=== PATIENT | male | born 1970 | race Caucasian/White ===

== ENCOUNTER 2016-12-17 20:58 | Emergency (ER) | payer BC, OTHER ==
[~2016-12-17] VITALS: Ht 185.4 cm; Wt 88.1 kg
[~2016-12-17 20:58] MED LIST: LAMO1TAB77 PO
[2016-12-17 21:01] VITALS: TEMP 36.7; Ht 185.4 cm; Wt 88.1 kg
[2016-12-17] MEDS ORDERED: HYDROmorphone INJ 1 MG/ML SYR IV STA ×2 (21:15→22:07)
[2016-12-17] MEDS ORDERED: ONDANSETRON INJ 2 MG/ML 2 ML VIAL IV STA (21:15)
[2016-12-17] MEDS ORDERED: KETOROLAC TROMETHAMINE 30 MG/ML VIAL IV STA (21:15)
[2016-12-17] MEDS ORDERED: SODIUM CHLORIDE 0.9% 1000ML 1,000 ML IV STA (21:15)
[2016-12-17] MEDS ORDERED: IBUP-103 PO (21:18)
[2016-12-17] MEDS ORDERED: DEXAMETHASONE SOD INJ 10 MG/ML VIAL IV ONE (21:30)
[2016-12-17 21:52] LABS: BASO % 0.6 %; BASO ABS # 0.04 K/uL (0-0.2); COMPLETE YES; EOS % 5.5 %; HEMATOCRIT 43.6 % (42-52); IG% 0.2 %; LYMPH % 35.3 %; LYMPH ABS # 2.18 K/uL (1.2-3.4); MEAN CORPUSCULAR HGB CONC 33.7 g/dl (32-36); MEAN PLATELET VOLUME 9.5 fL (7.4-10.4); MONO % 7.1 %; NEUT % 51.3 %; PLATELET COUNT 218 K/uL (130-400); WHITE BLOOD COUNT 6.18 K/uL (4.8-10.8)
[2016-12-17 22:07] LABS: CALCIUM 8.7 mg/dl (8.5-10.1)
[2016-12-17 22:08] LABS: BLOOD UREA NITROGEN 18 mg/dl (7-18); BUN/CREATININE RATIO 15.1 (10-20); C-REACTIVE PROTEIN < 0.29 mg/dl (0-0.29); CARBON DIOXIDE 29 mmol/L (21-32); CHLORIDE 104 mmol/L (98-107); GLUCOSE 105 mg/dl (70-99); POTASSIUM 3.8 mmol/L (3.5-5.1); SODIUM 142 mmol/L (136-145)
[2016-12-17] MEDS ORDERED: MoRPHine SULFATE 10 MG/ML CARP/VIAL IV STA (22:44)
[2016-12-17] MEDS ORDERED: OXYC1TAB3 PO (23:35)
--- NOTE | 2016-12-17 23:41 | EMERGENCY ROOM VISIT NOTE ---
History First contact with patient: 21:02 Chief Complaint: BACK PAIN Stated Complaint: LOW BACK PAIN History of Present Illness The patient is a 46 year old male who presents to the Emergency Room with complaints of lower back pain radiating down the left lower extremity to the calf. The patient reports that he was riding his bicycle in the backyard when he felt a pop in his lower back, then quickly developed radicular symptoms. The patient now reports severe pain. He denies any [place] foot drop when walking across the yard to the house. He has not urinated since this injury which happened a proximal one hour ago. He currently denies any saddle anesthesias or incontinence. The patient does have a history of left L5-S1 HNP , status post laminotomy performed by Dr. Krishnan in 2010. He has had no problems with his back since that time. The patient was recently in [place] , but denies any other recent injuries or strains to his bike. 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 He currently rates his discomfort an 8 out of 10. Sitting worsens his pain. His best pain relief is laying flat on his back with his left leg crossed over the right knee. The patient reports that he is good friends with Dr. Krishnan, and contacted him this evening. The patient will be following up in his office tomorrow. Review of Systems HEENT: Denies dizziness, visual problems, hearing loss, tinnitus. Denies difficulty swallowing or oral lesions. PULMONARY: Denies cough, shortness of breath, sputum production or hemoptysis. CARDIOVASCULAR: Denies chest pain, palpitations, dyspnea on exertion, orthopnea or peripheral edema. GASTROINTESTINAL: Denies diarrhea, constipation, nausea, vomiting, or abdominal pain. GENITOURINARY: Denies dysuria, frequency, urgency or nocturia. NEUROLOGIC: Denies history of epilepsy, CVA, TIA or chronic headaches. MUSCULOSKELETAL: Denies history of joint tenderness/swelling. SKIN: Denies rashes or lesions. PSYCHIATRIC: Denies history of depression or mental illness. ENDOCRINE: Denies history of diabetes or thyroid disorders. Past Medical/Surgical History Medical Problems: (1) Multiple orthopedic fractures Surgical Problems: (1) History of cervical spinal surgery (2) History of lumbar laminectomy (3) History of sinus surgery Family History No significant family history Social History Smoking Status: Never Smoker Alcohol Use: occasionally Marital Status: Housing Status: lives with family Occupation Status: employed Current/Historical Medications Scheduled Lamotrigine (Lamotrigine Er), 200 MG PO BID Scheduled PRN Ibuprofen Tab (Advil), 400-600 MG PO Q6H PRN for Pain Oxycodone Ir (Roxicodone Ir), 1-2 TAB PO Q4H PRN for Pain Allergies Coded Allergies: No Known Allergies (Verified , 08/29/15) Physical Exam Vital Signs Date Time Temp Pulse Resp B/P (MAP) Pulse Ox O2 Delivery O2 Flow Rate FiO2 12/17/16 23:00 68 18 154/81 99 Room Air 12/17/16 21:01 36.7 63 18 170/95 98 Room Air Physical Exam CONSTITUTIONAL: Healthy and well nourished. Alert and oriented X 3 with positive affect. The patient appears in mild to moderate discomfort. HEENT: Normocephalic, atraumatic. Pupils equal, round and reactive. NECK: Full active range of motion without discomfort. RESPIRATORY: Clear to auscultation bilaterally with no wheezing, crackles, rhonchi or stridor. CARDIOVASCULAR: Regular rate and rhythm with no murmurs, rubs or gallops. GASTROINTESTINAL: Bowel sounds present in all quadrants. Soft and nontender to palpation. MUSCULOSKELETAL: Examination shows mild tenderness to palpation through the left lumbar paraspinous muscle and SI joints. Negative logroll. Positive straight leg raise. Pedal pulses are intact. INTEGUMENTARY: No rash or other significant dermatologic conditions noted. NEUROLOGIC: Left lower extremity is sensory intact with 2+ deep tendon reflexes bilaterally. Medical Decision & Procedures Laboratory Results 12/17/16 21:40 Red Blood Count 4.90, Mean Corpuscular Volume 89.0, Mean Corpuscular Hemoglobin 30.0, Mean Corpuscular Hemoglobin Concent 33.7, Mean Platelet Volume 9.5, Neutrophils (%) (Auto) 51.3, Lymphocytes (%) (Auto) 35.3, Monocytes (%) (Auto) 7.1, Eosinophils (%) (Auto) 5.5, Basophils (%) (Auto) 0.6, Neutrophils # (Auto) 3.17, Lymphocytes # (Auto) 2.18, Monocytes # (Auto) 0.44, Eosinophils # (Auto) 0.34, Basophils # (Auto) 0.04 6/18/17 21:40 Test 12/17/16 21:40 White Blood Count 6.18 K/uL (4.8-10.8) Red Blood Count 4.90 M/uL (4.7-6.1) Hemoglobin 14.7 g/dL (14.0-18.0) Hematocrit 43.6 % (42-52) Mean Corpuscular Volume 89.0 fL (80-100) Mean Corpuscular Hemoglobin 30.0 pg (25-34) Mean Corpuscular Hemoglobin Concent 33.7 g/dl (32-36) Platelet Count 218 K/uL (130-400) Mean Platelet Volume 9.5 fL (7.4-10.4) Neutrophils (%) (Auto) 51.3 % Lymphocytes (%) (Auto) 35.3 % Monocytes (%) (Auto) 7.1 % Eosinophils (%) (Auto) 5.5 % Basophils (%) (Auto) 0.6 % Neutrophils # (Auto) 3.17 K/uL (1.4-6.5) Lymphocytes # (Auto) 2.18 K/uL (1.2-3.4) Monocytes # (Auto) 0.44 K/uL (0.11-0.59) Eosinophils # (Auto) 0.34 K/uL (0-0.5) Basophils # (Auto) 0.04 K/uL (0-0.2) RDW Standard Deviation 40.3 fL (36.4-46.3) RDW Coefficient of Variation 12.5 % (11.5-14.5) Immature Granulocyte % (Auto) 0.2 % Immature Granulocyte # (Auto) 0.01 K/uL (0.00-0.02) Erythrocyte Sedimentation Rate 2 mm/hr (0-14) Anion Gap 9.0 mmol/L (3-11) Est Creatinine Clear Calc Drug Dose 87.8 ml/min Estimated GFR () 84.1 Estimated GFR (Non- 72.6 BUN/Creatinine Ratio 15.1 (10-20) Calcium Level 8.7 mg/dl (8.5-10.1) C-Reactive Protein < 0.29 mg/dl (0-0.29) Medications Administered Medications (Trade) Dose Ordered Sig/Patricia Route Start Time Stop Time Status Last Admin Dose Admin Sodium Chloride 1,000 ml @ 999 mls/hr Q1H1M STAT IV 6/18/17 21:15 12/17/16 22:15 DC 12/17/16 21:34 999 MLS/HR Hydromorphone HCl (Dilaudid Inj) 1 mg NOW STAT IV 12/17/16 21:15 12/17/16 21:17 DC 12/17/16 21:35 1 MG Ketorolac Tromethamine (Toradol Inj) 30 mg NOW STAT IV 12/17/16 21:15 12/17/16 21:17 DC 12/17/16 21:36 30 MG Ondansetron HCl (Zofran Inj) 4 mg NOW STAT IV 12/17/16 21:15 12/17/16 21:17 DC 12/17/16 21:35 4 MG Dexamethasone Sodium Phosphate (Decadron Inj) 10 mg NOW ONCE IV 12/17/16 21:30 12/17/16 21:31 DC 12/17/16 21:35 10 MG Hydromorphone HCl (Dilaudid Inj) 1 mg NOW STAT IV 12/17/16 22:07 12/17/16 22:09 DC 12/17/16 22:14 1 MG Morphine Sulfate (MoRPHine SULFATE INJ) 10 mg NOW STAT IV 12/17/16 22:44 12/17/16 22:45 DC 12/17/16 22:50 10 MG Procedure 1. IV hydration: The patient received a liter normal saline bolus 2. IV medications: Dilaudid 1 mg, Toradol 30 mg, Zofran 4 mg and Decadron 10 mg IVP. The patient was administered a second dose of Dilaudid 1 mg approximately 30 minutes after the first because he had no relief of his pain. With assessment 30 minutes later, the patient reports her cyst and pain without significant relief. He was then administered morphine 10 mg IVP which did provide relief. ED Course Patient history and physical exam were performed. Nurse's notes were reviewed. Vital signs were reviewed and normal. His exam at this time is not concerning for cauda equina syndrome. I explain to the patient and made things can cause this pain, including muscle spasm and disc injury. His symptoms are consistent with a nonemergent neurogenic injury. I did discuss utility of the MRI studies, and suggested that he wait until he sees Dr. Krishnan tomorrow. I did suggest performing parenteral pain management and administration of a corticosteroid. The patient was in agreement. IV access was established. I did elect to draw labs in case the patient has intractable pain and will need observation or admission for this injury. Also with Dr. Krishnan warrants surgical intervention with this injury, labs will also already been performed. Labs were reviewed and were normal. The patient was administered a liter normal saline, and his initially was treated with IV Dilaudid, Toradol, Zofran and Decadron. After 30 minutes, the patient still had no relief of his pain, and was administered a second dose of Dilaudid. Assessment and 30 minutes showed no significant relief of pain. At this point, the patient reports that he had morphine after his last surgery. He was then administered morphine 10 mg IVP with reduction of his pain to a 7 out of 10. The patient was successfully trial ambulated. He was able to sit on the bed and stand "with some relief", and would like to try going home at this point. He reports that he has been texting Dr. Krishnan regarding his progress, and will be seen in his office tomorrow. The patient was provided a home pack and prescription for OxyIR 5 mg, dispensed #24 with no refills. As he will be seen in Dr. Messer's office tomorrow, I elected to not prescribed corticosteroids as they may have a different preference. The patient was instructed to return to the emergency department for intractable pain, bladder incontinence, profound approximately weakness or other concerning symptoms. The patient was happy with plan of care , and discharged with his . Medical Decision Clinical exam and history at this point is not suggestive of cauda equina syndrome. The patient does have a prior history of discotomy for a left L5-S1 HNP. The patient does not just a mechanism of injury for disc herniation at this time. Mechanism of injury also is not suggestive of a fracture, therefore plain radiograph studies were not performed. Impression Primary Impression: Left lumbar radiculitis Departure Information Prescriptions Oxycodone Ir (Roxicodone Ir) 5 Mg Tab 1-2 TAB PO Q4H Y for Pain, #24 TAB For Initial Treatment Prov: Jung Cotter PA 12/17/16 Referrals Aly Rush, D.OIrineo (PCP) Patient Instructions [facility]
[2016-12-17] MEDS ORDERED: OXYCODONE IR HOME PACK PO ONE (23:45)
[2016-12-17 23:56] VITALS: BP 147/76; PULSE 65; O2SAT 100
== END 2016-12-17 23:57 | disposition home or self-care (01) ==
LOC: C.EDB 21:00 → C.EDA 23:57
DX: M54.16 Radiculopathy, lumbar region (principal); Z79.899 Other long term (current) drug therapy

== ENCOUNTER 2018-01-23 12:00 | Inpatient (IN) | payer OTHER ==
[~2018-01-23] VITALS: Ht 185.4 cm; Wt 81.9 kg
[~2018-01-23 12:00] MED LIST changes: +IBUP-103 PO
[2018-01-23] MEDS ORDERED: LAMO1TAB76 PO (12:13)
--- NOTE | 2018-01-23 14:02 | DIAGNOSTIC IMAGING REPORT ---
LUMBAR SPINE W/O CONTRAST CLINICAL HISTORY: 48 years-old Male with LBP, LLE/pubic numbness - eval cauda equina. Acute low back pain with left lower extremity weakness. COMPARISON: MRI lumbar spine 12/22/2016. TECHNIQUE: Multiplanar, multi sequence MRI of the lumbar spine was performed without intravenous contrast. FINDINGS: No acute fracture, subluxation or focal bone marrow edema. Signal within the imaged thoracic spinal cord appears normal. Conus medullaris terminates at T12-L1. The imaged intra-abdominal, intrapelvic and paraspinal structures demonstrate no acute abnormality. T12-L1: No central canal or neural foraminal stenosis. L1-L2: No central canal or neural foraminal stenosis. L2-L3: No central canal or neural foraminal stenosis. L3-L4: Small circumferential annular disc bulge flattens the ventral thecal sac. No central canal or foraminal narrowing. Minimal facet spurring. L4-L5: Mild disc desiccation with circumferential annular disc bulge. Right paracentral/foraminal disc protrusion is also noted. There is flattening of the ventral thecal sac without significant central canal stenosis. There is mild right lateral recess and mild bilateral foraminal narrowing. Mild facet arthropathy. L5-S1: Mild to moderate intervertebral disc space narrowing with spondylytic spurring and circumferential annular disc bulge with suggested annular fissure. There is an ovoid structure posterior to the S1 vertebral body and inferior aspect of the L5-S1 disc space which demonstrates intermediate T1 and decreased T2 signal measuring 0.7 x 1.6 x 1.5 cm in AP, transverse and craniocaudal dimensions, respectively, within the central canal, left paracentral distribution and left lateral recess. This narrows the AP dimension of the thecal sac to 3 mm resulting in severe central canal, severe left lateral recess and moderate left foraminal stenosis. The right foramen is patent. Mild facet arthropathy. IMPRESSION: 1. 1.6 cm disc extrusion or sequestered disc fragment posterior to the S1 vertebral body and inferior L5-S1 endplate causes severe central canal, severe left lateral recess and moderate left foraminal narrowing. 2. Circumferential annular disc bulge with right paracentral/foraminal disc protrusion at L4-L5 causes mild right lateral recess stenosis. There is also mild bilateral foraminal narrowing at this level. 3. Mild multilevel facet arthropathy. The above report was generated using voice recognition software. It may contain grammatical, syntax or spelling errors. Dictated: 01/23/2018 1:12 PM Transcribed: 01/23/2018 2:02 PM DARIN_Anil Electronically signed by: Ronen Vang M.D. 01/23/2018 2:11 PM Dictated Date/Time: 01/23/2018 1:12 PM
[2018-01-23] MEDS ORDERED: SODIUM CHLORIDE 0.9% 1000ML 1,000 ML IV SCH (16:24)
[2018-01-23] MEDS ORDERED: ONDANSETRON INJ 2 MG/ML 2 ML VIAL IV PRN (16:30)
[2018-01-23] MEDS ORDERED: LORAZEPAM 1 MG TAB PO PRN (16:30)
[2018-01-23] MEDS ORDERED: CYCLOBENZAPRINE HCL 10 MG TAB PO PRN (16:30)
[2018-01-23] MEDS ORDERED: LORAZEPAM INJ 1 MG in SYRINGE 0 ML IV PRN (16:30)
[2018-01-23] MEDS ORDERED: OXYCODONE/ACETAMINOPHEN 5-325 TAB PO PRN (16:30)
[2018-01-23] MEDS ORDERED: ACETAMINOPHEN 325 MG TAB PO PRN (16:30)
[2018-01-23] MEDS ORDERED: NALOXONE HCL 0.4 MG/1 ML VIAL/CARP IV PRN (16:30)
--- NOTE | 2018-01-23 16:34 | History and Physical ---
History & Physical Date Jan 23, 2018. Chief Complaint Back pain with urinary retention and left leg weakness History of Present Illness The patient is a 48 year old male with complaints of progressive back pain left lower extremity weakness and urinary retention. He states over the past several days he began experiencing perineal numbness marked difficulty with urination and significant strength deficits with pushoff and walking involving left lower extremity. He denies any specific trauma fall or event. He does have a history of a disc herniation L5-S1 on the left little over a year ago that was managed with epidural steroids. He is status post laminotomy L5-S1 on the right many years ago. This time he states he has had no loss of bowel function. Is unable to sleep or ambulate any distance secondary to pain. Start a course of oral steroids and anti-inflammatories without improvement. MRI obtained in the emergency room this afternoon of the lumbar spine available for review does demonstrate evidence of a massive disc herniation L5-S1 emanating from the left side and producing a large massive free fragment migrating caudally creating significant stenosis and neural impingement posterior to S1 vertebral body. 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 Past Medical/Surgical History Medical Problems: (1) Multiple orthopedic fractures (2) Spinal stenosis of lumbar region with radiculopathy Surgical Problems: (1) History of cervical spinal surgery (2) History of lumbar laminectomy (3) History of sinus surgery Additional History Hepatic Disease: No Endocrine Disorder: No Kidney Disease: No Hypertension: No Heart Disease: No Bleeding Tendencies: No Infectious Diseases: No Allergies Coded Allergies: No Known Allergies (Verified , 08/29/15) Home Medications Scheduled Lamotrigine (Lamotrigine Er), 200 MG PO DAILY Physical Examination Addiitonal Comments: On exam he is in obvious distress. He does demonstrate decreased sensation to left lower extremity compared to the right as well as numbness along the perineal area. He has marked difficulty with heel raise on the left compared to the right. His dorsiflexion and extensor hallucis longus appears to be symmetric and intact. Quadriceps intact. Markedly positive straight leg raise on the left negative on the right. He has no abnormal skin markings well- healed midline lumbar incision. Plan of Treatment Assessment herniated nucleus pulposus L5-S1 with free fragment and significant neural compromise and neural deficit. Plan at this time this would be his third lumbar L5-S1 disc herniation now with progressive neurologic deficit numbness and bladder symptoms. Subsequently recommend urgent decompression and fusion of the lumbar spine. Risks benefits pros cons and alternatives were outlined in detail. Risks include but not limited to from anesthesia blindness stroke paralysis nerve damage blood loss current transfusion infection requiring reoperation benefits hopefully marked improvement of his radiculopathy and with time recurrent return of his strength and improvement of his perineal numbness. Patient understands and agrees. We will make him n.p.o. after midnight tonight have him undergo preoperative evaluation with anesthesia and hope for surgery early a.m.
[2018-01-23 16:45] VITALS: O2SAT 97; Ht 185.4 cm; Wt 81.9 kg
--- NOTE | 2018-01-23 17:04 | EMERGENCY ROOM VISIT NOTE ---
History First contact with patient: 12:11 Stated Complaint: LOSS OF FEELING FROM WAIST DOWN/BACK & LEG PAIN History of Present Illness The patient is a 48 year old male who presents to the Emergency Room with complaints of loss sensation in his pubic region and lateral aspect of the left lower extremity. The patient reports a prior history of disc herniation with surgery performed by Dr. Krishnan in 2010. The patient has also had an epidural steroid injection in the back approximately 1 week ago at [facility]. This only provided short-term relief for approximately 1 week. The patient also reports that he got a second opinion from [facility] as well. Although the patient denies any bladder or bowel incontinence , he reports that it feels like he is going to lose bladder control, and is afraid to sleep because of it. He denies any noticeable weakness or foot drop. He reports a burning sensation radiating down the left lower extremity to the calf. The patient rates his discomfort a 6 out of 10. He denies any recent trauma to the back. Review of Systems HEENT: Denies dizziness, visual problems, hearing loss, tinnitus. Denies difficulty swallowing or oral lesions. PULMONARY: Denies cough, shortness of breath, sputum production or hemoptysis. CARDIOVASCULAR: Denies chest pain, palpitations, dyspnea on exertion, orthopnea or peripheral edema. GASTROINTESTINAL: Denies diarrhea, constipation, nausea, vomiting, or abdominal pain. GENITOURINARY: Denies dysuria, frequency, urgency or nocturia. NEUROLOGIC: Denies history of epilepsy, CVA, TIA or chronic headaches. MUSCULOSKELETAL: Denies history of joint tenderness/swelling. Otherwise see HPI with history of back surgery and left-sided HNP of L5-S1. SKIN: Denies rashes or lesions. PSYCHIATRIC: Denies history of depression or mental illness. ENDOCRINE: Denies history of diabetes or thyroid disorders. Past Medical/Surgical History Medical Problems: (1) Multiple orthopedic fractures (2) Spinal stenosis of lumbar region with radiculopathy Surgical Problems: (1) History of cervical spinal surgery (2) History of lumbar laminectomy (3) History of sinus surgery Family History No significant family history Social History Smoking Status: Never Smoker Alcohol Use: occasionally Marital Status: Housing Status: lives with family Occupation Status: employed Current/Historical Medications Scheduled Lamotrigine (Lamotrigine Er), 200 MG PO DAILY Physical Exam Vital Signs Date Time Temp Pulse Resp B/P (MAP) Pulse Ox O2 Delivery O2 Flow Rate FiO2 01/23/18 15:15 48 15 129/77 97 Room Air 01/23/18 14:49 36.5 59 20 142/82 96 Room Air Physical Exam CONSTITUTIONAL: Healthy and well nourished. Alert and oriented X 3 with positive affect. Patient appears in mild distress. HEENT: Normocephalic, atraumatic. Pupils equal, round and reactive. No scleral icterus or conjunctival injection. NECK: Full active range of motion without discomfort. RESPIRATORY: Clear to auscultation bilaterally with no wheezing, crackles, rhonchi or stridor. CARDIOVASCULAR: Regular rate and rhythm with no murmurs, rubs or gallops. GASTROINTESTINAL: Bowel sounds present in all quadrants. Soft and nontender to palpation. GENITOURINARY: Patient reports a subjective decreased sensation of the perineum and inner thigh region. No priapism. MUSCULOSKELETAL: Examination shows mild tenderness to palpation of the left lower lumbar spine and SI joint. Negative logroll. Negative straight leg raise. Ankle plantar/dorsiflexion strength is 4 out of 5 on the left, 5 out of 5 on the right. Pedal pulses are intact. INTEGUMENTARY: No rash or other significant dermatologic conditions noted. NEUROLOGIC: Deep tendon reflexes are 2+ and symmetric bilaterally. The patient reports subjective decreased sensation to the lateral aspect of the foot , leg and thigh. Medical Decision & Procedures ER Provider Diagnostic Interpretation: MRI of the lumbar spine without IV contrast shows the following: LUMBAR SPINE W/O CONTRAST CLINICAL HISTORY: 48 years-old Male with LBP, LLE/pubic numbness - eval cauda equina. Acute low back pain with left lower extremity weakness. COMPARISON: MRI lumbar spine 12/22/2016. TECHNIQUE: Multiplanar, multi sequence MRI of the lumbar spine was performed without intravenous contrast. FINDINGS: No acute fracture, subluxation or focal bone marrow edema. Signal within the imaged thoracic spinal cord appears normal. Conus medullaris terminates at T12-L1. The imaged intra-abdominal, intrapelvic and paraspinal structures demonstrate no acute abnormality. T12-L1: No central canal or neural foraminal stenosis. L1-L2: No central canal or neural foraminal stenosis. L2-L3: No central canal or neural foraminal stenosis. L3-L4: Small circumferential annular disc bulge flattens the ventral thecal sac. No central canal or foraminal narrowing. Minimal facet spurring. L4-L5: Mild disc desiccation with circumferential annular disc bulge. Right paracentral/foraminal disc protrusion is also noted. There is flattening of the ventral thecal sac without significant central canal stenosis. There is mild right lateral recess and mild bilateral foraminal narrowing. Mild facet arthropathy. L5-S1: Mild to moderate intervertebral disc space narrowing with spondylytic spurring and circumferential annular disc bulge with suggested annular fissure. There is an ovoid structure posterior to the S1 vertebral body and inferior aspect of the L5-S1 disc space which demonstrates intermediate T1 and decreased T2 signal measuring 0.7 x 1.6 x 1.5 cm in AP, transverse and craniocaudal dimensions, respectively, within the central canal, left paracentral distribution and left lateral recess. This narrows the AP dimension of the thecal sac to 3 mm resulting in severe central canal, severe left lateral recess and moderate left foraminal stenosis. The right foramen is patent. Mild facet arthropathy. IMPRESSION: 1. 1.6 cm disc extrusion or sequestered disc fragment posterior to the S1 vertebral body and inferior L5-S1 endplate causes severe central canal, severe left lateral recess and moderate left foraminal narrowing. 2. Circumferential annular disc bulge with right paracentral/foraminal disc protrusion at L4-L5 causes mild right lateral recess stenosis. There is also mild bilateral foraminal narrowing at this level. 3. Mild multilevel facet arthropathy. Laboratory Results Test 01/23/18 16:24 ED Course Patient history and physical exam were performed. Nurse's notes were reviewed. Vital signs were reviewed and were normal. The patient refused any analgesics or corticosteroid treatment. He did not want any IV access. MRI of the lumbar spine is summarized in the previous Diagnostic Interpretation section. Consultation was placed with Dr. Krishnan, spine surgeon, who came to the emergency department, evaluated the patient and has recommended admission with surgical intervention tomorrow morning. Patient was in agreement. The patient refused any analgesics while under my care. Please see Dr. Krishnan's dictation for further treatment and final disposition. Medical Decision Impression Primary Impression: Lumbar disc fragment Additional Impression: Severe lumbar spinal stenosis Departure Information Referrals No Doctor, Assigned (PCP) Problem Qualifiers
[2018-01-23 17:10] LABS: BASO % 0.6 %; BASO ABS # 0.03 K/uL (0-0.2); EOS % 9.6 %; EOS ABS # 0.47 K/uL (0-0.5); HEMATOCRIT 45.8 % (42-52); HEMOGLOBIN 15.8 g/dL (14.0-18.0); IG# 0.01 K/uL (0.00-0.02); LYMPH % 44.6 %; LYMPH ABS # 2.19 K/uL (1.2-3.4); MEAN CELL VOLUME 90.2 fL (80-100); MEAN CORPUSCULAR HEMOGLOBIN 31.1 pg (25-34); MEAN CORPUSCULAR HGB CONC 34.5 g/dl (32-36); MEAN PLATELET VOLUME 9.7 fL (7.4-10.4); MONO ABS # 0.44 K/uL (0.11-0.59); NEUT ABS # 1.77 K/uL (1.4-6.5); PLATELET COUNT 215 K/uL (130-400); RED CELL DISTRIBUTION WIDTH CV 12.4 % (11.5-14.5); RED CELL DISTRIBUTION WIDTH SD 40.8 fL (36.4-46.3); WHITE BLOOD COUNT 4.91 K/uL (4.8-10.8)
[2018-01-23 17:30] VITALS: BP 143/86; PULSE 45; TEMP 36.4; O2SAT 99
[2018-01-23 17:31] LABS: ALBUMIN 4.2 gm/dl (3.4-5.0); CALCIUM 9.3 mg/dl (8.5-10.1); CREATININE 0.88 mg/dl (0.60-1.40); TOTAL PROTEIN 7.6 gm/dl (6.4-8.2)
[2018-01-23] MEDS: HYDROmorphone HCL 0.5MG/ML 50 ML CASSETTE IV PRN ×2 (18:47→22:49)
[2018-01-23 19:46] VITALS: BP 134/86; PULSE 45; TEMP 36.4; O2SAT 99
[2018-01-23 20:47] VITALS: BP 153/82; PULSE 53; TEMP 36.5; O2SAT 97
[2018-01-23] MEDS: DOCUSATE SODIUM 100 MG CAP PO SCH (21:00)
[2018-01-23 22:21] VITALS: BP 133/85; PULSE 53; TEMP 36.4; O2SAT 95
[2018-01-23 22:54] VITALS: BP 131/77; PULSE 51; TEMP 36.4; O2SAT 97
[2018-01-24] VITALS (8 sets, daily range): BP systolic 108–151; BP diastolic 57–80; PULSE 46–89; TEMP 36.4–36.6; O2SAT 94–98
[2018-01-24] MEDS ORDERED: CEFAZOLIN 2000MG IV PUSH 15 ML IV SCH (06:00)
[2018-01-24] MEDS: HYDROmorphone HCL 0.5MG/ML 50 ML CASSETTE IV PRN (07:01)
[2018-01-24] MEDS: LAMOTRIGINE 100 MG PO SCH (07:25)
[2018-01-24] MEDS: DOCUSATE SODIUM 100 MG CAP PO SCH ×2 (07:25→21:00)
--- NOTE | 2018-01-24 10:32 | History & Physical Bridge Note ---
H&P Re-Evaluation Bridge Note: I have examined the patient, reviewed the History & Physical and in the interval since the performance of the History & Physical I have noted the following changes of clinical significance: No changes noted
[2018-01-24] MEDS ORDERED: BACITRACIN 50000 UNIT VIAL ONE (10:55)
[2018-01-24] MEDS ORDERED: BUPIVACAINE/EPINEPHRINE 0.5% MPF 1:200,000 30 ML VIAL ONE (10:55)
[2018-01-24] MEDS ORDERED: PROPOFOL IV EMULSION 10 MG/ML 20 ML VIAL ONE (11:06)
[2018-01-24] MEDS ORDERED: LIDOCAINE HCL 2% 2 ML VIAL (20MG/ML) ONE (11:06)
[2018-01-24] MEDS ORDERED: DEXAMETHASONE SOD INJ 4 MG/ML VIAL ONE ×3 (11:06→12:47)
[2018-01-24] MEDS ORDERED: EpHEDrine SULFATE INJ 50 MG/ML AMP ONE ×2 (11:06→12:00)
[2018-01-24] MEDS ORDERED: SUCCINYLCHOLINE CHLORIDE 20 MG/ML 10 ML VIAL IV ONE (11:06)
[2018-01-24] MEDS ORDERED: NEOSTIGMINE METHYLSULFATE 1 MG/ML 10ML VIAL ONE (11:06)
[2018-01-24] MEDS ORDERED: GLYCOPYRROLATE INJ 0.2 MG/ML VIAL ONE ×2 (11:06→12:46)
[2018-01-24] MEDS ORDERED: PHENYLEPHRINE HCL INJ 10 MG/ML VIAL ONE (11:06)
[2018-01-24] MEDS ORDERED: ONDANSETRON INJ 2 MG/ML 2 ML VIAL ONE (11:06)
[2018-01-24] MEDS ORDERED: MIDAZOLAM HCL 1 MG/ML 2ML VIAL ONE (11:07)
[2018-01-24] MEDS ORDERED: FENTANYL CITRATE INJ 50 MCG/1 ML 2 ML VIAL ONE ×2 (11:07)
[2018-01-24] MEDS ORDERED: BUPIVACAINE LIPOSOME 1/3% 266 MG/20 ML VIAL ONE (11:10)
[2018-01-24] MEDS ORDERED: SODIUM CHLORIDE 0.9% PF 50 ML VIAL ONE (11:10)
[2018-01-24] MEDS ORDERED: BUPIVACAINE 0.5 % 5 MG/1 ML PF 10ML VIAL ONE (11:10)
[2018-01-24] MEDS ORDERED: ATROPINE SULFATE 0.1 MG/ML 5ML SYR IV PRN (11:15)
[2018-01-24] MEDS ORDERED: ONDANSETRON INJ 2 MG/ML 2 ML VIAL IV PRN ×2 (11:15→13:45)
[2018-01-24] MEDS ORDERED: HYDROmorphone INJ 2 MG/ML SYR/VIAL ONE (11:55)
[2018-01-24] MEDS ORDERED: ROCURONIUM BROMIDE 10 MG/ML 5 ML VIAL ONE (11:58)
[2018-01-24] MEDS ORDERED: SODIUM CHLORIDE 0.9% INJ 10 ML VIAL ONE (12:00)
[2018-01-24] MEDS ORDERED: FLOSEAL HEMOSTATIC MATRIX 10ML TOP ONE (13:25)
--- NOTE | 2018-01-24 13:44 | [facility] Operative Report ---
Operative Report Operative Date Jan 24, 2018. Pre-Operative Diagnosis herniated nucleus pulposus L5-S1 with free fragment and significant neural compromise and neural deficit Post-Operative Diagnosis herniated nucleus pulposus L5-S1 with free fragment and significant neural compromise and neural deficit Procedure(s) Performed 1. Revision decompression medial vasectomy foraminotomies L5-S1. 2 posterior spinal fusion L5-S1. #3 placement posterior instrumentation L5-S1. #4 interbody fusion L5-S1. #5 placement of titanium 10 x 26 mm cage L5-S1. #6 placement of local autograft in the posterior gutters. #7 placement InFUSE collagen sponge, mass graft the posterior gutters and ostial amp in the interbody space. Surgeon Dr. Krishnan Cloth Measurer Surgeon(s) None Estimated Blood Loss 100 ML Findings Herniated nucleus pulposus L5-S1 on the left with free fragment caudal migration Specimens none per surgeon Anesthesia Type General Description of Procedure Patient was met with preoperatively case discussed all questions addressed. After informed consent obtained patient was taken to the operative suite underwent intubation placed in prone position injection table tablets frame. All bony prominences well-padded eyes inspected to ensure no external pressure placed upon. This point the lumbar spine was prepped and draped in normal sterile fashion. Sharp dissection with the assistance Bovie cautery was performed down to and exposing the remaining lamina and transverse process of L5 -S1 levels bilaterally. From caudocephalad fashion revision complete laminectomy L5 was performed including medial facetectomy foraminotomy on the left. Significant adhesions noted to the traversing S1 nerve root.. I was able to mobilize this medially medially and address several massive fragments of free disc material. After this complete pedicle screws were placed in L5-S1 levels bilaterally with the assistance of fluoroscopy through a transforaminal approach and left oblique discectomy of L5-S1 was performed endplates created to subcortical bleeding bone and the 10 x 26 mm titanium cage with ostium bone graft tapped in position. Probe size rods were placed compressed locked in final position bilaterally. The transverse processes of L5 and S1 levels burred to subcortical bleeding bone. Infuse collagen sponge master graft and local autograft placed posterior gutters. Approximately 100 cc of Exparel injected into the musculature. 15 round CECILIA drain inserted. Incision was then closed with 1 Vicryl fascia 2-0 Vicryl subcutaneous and 4 Monocryl for fashion closure Steri-Strips sterile dressings placed. Patient was then awakened and taken to PACU in stable condition. I attest to the content of the Intraoperative Record and any orders documented therein. Any exceptions are noted below.
[2018-01-24] MEDS ORDERED: NALOXONE HCL 0.4 MG/1 ML VIAL/CARP IV PRN (13:45)
[2018-01-24] MEDS ORDERED: ACETAMINOPHEN 500 MG TAB PO PRN (13:45)
[2018-01-24] MEDS ORDERED: FAMOTIDINE 20 MG TAB PO PRN (13:45)
[2018-01-24] MEDS ORDERED: BISACODYL 10 MG SUPP PR PRN (13:45)
[2018-01-24] MEDS ORDERED: hydrOXYzine HCL 25 MG TAB PO PRN (13:45)
[2018-01-24] MEDS ORDERED: PROMETHAZINE HCL INJ 12.5 MG in SODIUM CHLORIDE 0.9% 50ML 50 ML IV PRN (13:45)
[2018-01-24] MEDS ORDERED: LORAZEPAM INJ 0.5 MG in SYRINGE 0 ML IV PRN (13:45)
[2018-01-24] MEDS ORDERED: SOD PHOSPHATE/SOD BIPHOSPHATE ENEMA 132 ML BTL PR PRN (13:45)
[2018-01-24] MEDS ORDERED: CEFAZOLIN IV 2,000 MG in DEXTROSE 5% 50ML 50 ML IV SCH (13:45)
[2018-01-24] MEDS ORDERED: DO NOT ADMINISTER FLU VACCINE PRN (13:45)
[2018-01-24] MEDS ORDERED: MAGNESIUM HYDROXIDE SUSP 30 ML UDC PO PRN (13:45)
[2018-01-24] MEDS ORDERED: DO NOT ADMINISTER PNEUMOCOCCAL VACCINE PRN (13:45)
[2018-01-24] MEDS ORDERED: ACETAMINOPHEN IV 100 ML IV PRN (13:45)
[2018-01-24] MEDS ORDERED: METOCLOPRAMIDE HCL INJ 5 MG/ML 2 ML VIAL IV PRN (13:45)
[2018-01-24] MEDS ORDERED: ALUMINUM/MAGNESIUM SUSP 30 ML UDC PO PRN (13:45)
[2018-01-24] MEDS ORDERED: LORAZEPAM 0.5 MG TAB PO PRN (13:45)
[2018-01-24] MEDS ORDERED: DC PCA ONE (14:00)
--- NOTE | 2018-01-24 14:34 | DIAGNOSTIC IMAGING REPORT ---
LUMBAR SPINE 2 OR 3 VIEW CLINICAL HISTORY: L5-S1 DECOMPRESSION AND FUSION COMPARISON STUDY: Lumbar spine MRI January 23, 2018. FLUOROSCOPY TIME: 32.6 seconds. FINDINGS: 2 fluoroscopic images demonstrate an L5-S1 discectomy with interbody spacer placement. There is a posterior decompression. Bilateral pedicle screws are noted the L5 and S1 levels with interconnecting rods. IMPRESSION: Fluoroscopic images demonstrating an L5-S1 discectomy and bilateral pedicle screw fusion. Electronically signed by: Olivier Gaspar M.D. 01/24/2018 2:33 PM Dictated Date/Time: 01/24/2018 2:32 PM
[2018-01-24] MEDS: HYDROmorphone INJ 2 MG/ML SYR/VIAL IV PRN ×4 (14:49→15:14)
--- NOTE | 2018-01-24 15:00 | Anesthesiology Progress Note ---
Anesthesia Post Op Note Date & Time Jan 24, 2018 at 15:00 Vital Signs Vital Signs Past 12 Hours Date Time Temp Pulse Resp B/P (MAP) Pulse Ox O2 Delivery O2 Flow Rate FiO2 01/24/18 14:55 67 12 140/71 99 Nasal Cannula 2 01/24/18 14:45 64 10 149/62 99 Nasal Cannula 2 01/24/18 14:35 62 8 132/69 98 Nasal Cannula 2 01/24/18 14:25 81 11 138/61 100 Oxymask 10 01/24/18 14:17 36.9 67 13 149/80 100 Oxymask 10 01/24/18 07:40 Room Air 01/24/18 07:15 36.4 46 15 108/65 (79) 97 Room Air 01/24/18 04:00 36.5 54 15 109/57 (74) 98 Room Air Notes Mental Status: alert / awake / arousable, participated in evaluation Pt Amnestic to Procedure: Yes Nausea / Vomiting: adequately controlled Pain: adequately controlled Airway Patency, RR, SpO2: stable & adequate BP & HR: stable & adequate Hydration State: stable & adequate Anesthetic Complications: no major complications apparent
[2018-01-24] MEDS: LACTATED RINGER'S 1000ML 1,000 ML IV SCH ×2 (15:50→21:23)
[2018-01-24] MEDS: CEFAZOLIN IV 2,000 MG in SYRINGE 0 ML IV SCH (19:13)
[2018-01-24] MEDS ORDERED: NURSING VERBAL MED ORDER ONE (19:30)
[2018-01-24] MEDS ORDERED: HYDROmorphone INJ 0.5 MG/0.5 ML SYR IV PRN (19:45)
[2018-01-24] MEDS: DOCUSATE SODIUM/SENNA 50/8.6MG TAB PO SCH (21:00)
[2018-01-25] MEDS: LACTATED RINGER'S 1000ML 1,000 ML IV SCH (02:56)
[2018-01-25] MEDS: CEFAZOLIN IV 2,000 MG in SYRINGE 0 ML IV SCH (02:57)
[2018-01-25 03:51] VITALS: BP 117/68; PULSE 67; TEMP 36.5; O2SAT 96
[2018-01-25] MEDS ORDERED: OXYCODONE HCL IR 5 MG TAB (IMMEDIATE RELEASE) PO PRN (06:00)
[2018-01-25] MEDS ORDERED: HYDROmorphone INJ 0.5 MG/0.5 ML SYR IV PRN (06:00)
[2018-01-25] MEDS: OXYCODONE HCL IR 5 MG TAB (IMMEDIATE RELEASE) PO PRN ×2 (06:07→12:45)
[2018-01-25 06:08] LABS: BASO % 0.1 %; BASO ABS # 0.01 K/uL (0-0.2); EOS % 0.5 %; EOS ABS # 0.06 K/uL (0-0.5); HEMATOCRIT 39.3 % (42-52); HEMOGLOBIN 13.4 g/dL (14.0-18.0); IG# 0.02 K/uL (0.00-0.02); LYMPH % 16.8 %; LYMPH ABS # 1.91 K/uL (1.2-3.4); MEAN CELL VOLUME 90.6 fL (80-100); MEAN CORPUSCULAR HEMOGLOBIN 30.9 pg (25-34); MEAN CORPUSCULAR HGB CONC 34.1 g/dl (32-36); MEAN PLATELET VOLUME 9.9 fL (7.4-10.4); MONO % 8.8 %; NEUT % 73.6 %; NEUT ABS # 8.38 K/uL (1.4-6.5); PLATELET COUNT 193 K/uL (130-400); RED CELL DISTRIBUTION WIDTH CV 12.6 % (11.5-14.5); RED CELL DISTRIBUTION WIDTH SD 41.7 fL (36.4-46.3); WHITE BLOOD COUNT 11.38 K/uL (4.8-10.8)
[2018-01-25] MEDS ORDERED: NURSING VERBAL MED ORDER ONE (06:15)
[2018-01-25 06:44] LABS: CALCIUM 8.4 mg/dl (8.5-10.1); CREATININE 0.98 mg/dl (0.60-1.40); POTASSIUM 3.7 mmol/L (3.5-5.1)
[2018-01-25 06:55] VITALS: BP 127/69; PULSE 61; TEMP 36.8; O2SAT 99
--- NOTE | 2018-01-25 07:26 | Anesthesiology Progress Note ---
Anesthesia Post Op Note Date & Time Jan 25, 2018 at 07:25 Vital Signs Pain Intensity: 8.0 Vital Signs Past 12 Hours Date Time Temp Pulse Resp B/P (MAP) Pulse Ox O2 Delivery O2 Flow Rate FiO2 01/25/18 06:55 36.8 61 18 127/69 (88) 99 Room Air 01/25/18 03:51 36.5 67 15 117/68 (84) 96 Room Air 01/25/18 00:05 Room Air 01/24/18 23:00 36.4 79 16 151/75 (100) 96 Notes Mental Status: alert / awake / arousable, participated in evaluation Pt Amnestic to Procedure: Yes Nausea / Vomiting: adequately controlled Pain: adequately controlled Airway Patency, RR, SpO2: stable & adequate BP & HR: stable & adequate Hydration State: stable & adequate Anesthetic Complications: no major complications apparent
[2018-01-25] MEDS ORDERED: KETOROLAC TROMETHAMINE 30 MG/ML VIAL IV STA (07:53)
[2018-01-25] MEDS ORDERED: KETOROLAC TROMETHAMINE 30 MG/ML VIAL IV PRN (08:00)
[2018-01-25] MEDS: DOCUSATE SODIUM 100 MG CAP PO SCH ×2 (08:56→20:19)
[2018-01-25] MEDS: LAMOTRIGINE 100 MG PO SCH (08:57)
[2018-01-25 11:07] VITALS: BP 117/71; PULSE 68; TEMP 36.5; O2SAT 98
[2018-01-25 11:40] VITALS: BP 123/81; PULSE 80; O2SAT 98
[2018-01-25] MEDS ORDERED: RXC5 PO (12:22)
--- NOTE | 2018-01-25 12:23 | Discharge Instructions ---
Discharge Instructions Date of Service Jan 25, 2018. Admission Reason for Admission: Spinal Stenosis Of Lumbar Region With Radiculopath Discharge Discharge Diagnosis / Problem: lumbar stenosis Discharge Goals Goal(s): Improve function Activity Recommendations Activity Limitations: per Instructions/Follow-up section . Instructions / Follow-Up Instructions / Follow-Up ACTIVITY RECOMMENDATIONS: SELF CARE INSTRUCTIONS AFTER THORACIC/LUMBAR FUSIONS 1. You may walk to your tolerance. It is good exercise for your legs and back. Expect some back and intermittent leg aches and pains. 2. You may perform "counter-top" level activities (make a sandwich, conor with a project, etc.). 3. No bending or lifting of more than 10 pounds or back twisting of any nature (roll like a log when turning in bed). 4. You may ride in a car for 20-30 minutes at a time. No driving until after your first visit with your doctor. 5. Frequent changes of position and restricting sitting to 30 minutes at a time will help limit the amount of back spasms and stiffness you may experience. 6. You may discontinue the use of ambulatory aids (cane, crutches, etc.) once your strength and confidence allow. 7. You may pipe fitter welding the shower and let water strike your incision when you arrive home at least once daily. Do not take a tub bath, sit in a hot tub or go into a swimming pool until after your first recheck in the office. SPECIAL CARE INSTRUCTIONS: VERY IMPORTANT TO READ AND REVIEW A. Your surgical incision has been closed with a cosmetic suture under the skin that will dissolve in about 6 weeks. In 14 days, you can use a pair of clean scissors and cut the suture that is left outside of the skin at the ends of your incision. 1. The small skin tapes can be removed 7 days after surgery if they have not fallen off by that point. 2. You may keep the wound open to air as much as possible to promote healing after post-op day number 5 unless told otherwise by your doctor. 3. If you think the wound looks like it is becoming infected (redness or worsening drainage) and/or you are experiencing fever, chill or worsening back pain and muscle spasms, contact the office so that we may evaluate you as soon as possible. B. Complications are uncommon, but please contact us if you have any signs or symptoms of: 1. wound infection (fever higher than 102.5 degrees F, redness, separation of wound, drainage, or increasing pain from the incision) 2. blood clots in legs (pain, swelling, redness and warmth in legs) 3. urinary tract infection (fever higher than 102.5 degrees F, burning upon urination or increased frequency of urination) 4. nerve problems (inability to walk on your toes or heels, numbness, loss of bowel or bladder control) 5. any other symptoms that concern you C. Please call the office at if you have any concerns or questions about your operation or recovery. D. No smoking! Smoking drastically decreases the chance of a solid fusion. E. Do not take any anti-inflammatory medications (Indocin, Advil, Motrin, Aspirin, Naprosyn, etc.) as these may inhibit the chance of a solid fusion. Tylenol is okay to take for pain. MANAGING PAIN AFTER SPINAL SURGERY 1. Narcotic medication is intended for short-term use and will be provided for surgical pain. Surgical pain usually lasts for a period of 4-6 weeks. Narcotic medication includes Percocet, Vicodin, Darvocet, Tylenol #3 or Lortab. 2. Longer-term pain is more appropriately treated with non-narcotic medication such as Tylenol ES. 3. Muscle spasm is not appropriately treated with narcotics. Muscle relaxers such as Soma, Flexeril or Skelaxin can be used along with Tylenol ES. 4. Remember that we all live with some "aches and pains". This is not unusual or uncommon after an injury or as we get older. a. Back pain is expected and may include muscle spasms for 4 to 6 weeks after surgery. The pain should gradually improve. If the pain worsens for no apparent reason, please contact the office. b. Intermittent leg pain may also be experienced and should not be concerned about unless it worsens for no apparent reason. If so, please contact the office. 5. We will provide appropriate medication within the normal guidelines of their prescribed use. We will also be very cautious and aware of potential abuse and extended duration of patients' medication needs. a. Pain medications are for your comfort and to assist with sleep and rest so that the tissue can heal. They are not provided in order to return to normal activity and should not be used through the day. To do so or worsening pain at night can result from ongoing tissue damage and development of tolerance to the prescribed medicine. 6. Please allow 2-3 days to process refills. Prescriptions will not be mailed but must be picked up at the office. FOLLOW UP VISIT: Keep your scheduled follow-up appointment. Any questions, please call the office at . Current Hospital Diet Patient's current hospital diet: Regular Diet Discharge Diet Recommended Diet: Regular Diet Procedures Procedures Performed: 1. Revision decompression medial vasectomy foraminotomies L5-S1. 2 posterior spinal fusion L5-S1. #3 placement posterior instrumentation L5-S1. #4 interbody fusion L5-S1. #5 placement of titanium 10 x 26 mm cage L5-S1. #6 placement of local autograft in the posterior gutters. #7 placement InFUSE collagen sponge, mass graft the posterior gutters and ostial amp in the interbody space. Pending Studies Studies pending at discharge: no Medical Emergencies . Who to Call and When: Medical Emergencies: If at any time you feel your situation is an emergency, please call 911 immediately. . Non-Emergent Contact Non-Emergency issues call your: Primary Care Provider . "Provider Documentation" section prepared by Gino Krishnan. .
--- NOTE | 2018-01-25 13:16 | Progress Note ---
Progress Note Date of Service Jan 25, 2018. Progress Note Patient's back pain is controlled left leg symptoms markedly improved. He has been up and ambulating well. Urination is improved as well as perineal numbness. Vital signs are stable. CECILIA drain decreasing. Assessment status post lumbar decompression fusion per plan at this time will continue physical therapy and ambulation possible discharge home tomorrow.
[2018-01-25 16:28] VITALS: BP 121/70; PULSE 61; TEMP 36.7; O2SAT 93
[2018-01-25] MEDS: DOCUSATE SODIUM/SENNA 50/8.6MG TAB PO SCH (20:20)
[2018-01-25 22:57] VITALS: BP 130/73; PULSE 76; TEMP 36.7; O2SAT 98
[2018-01-26] MEDS: POLYETHYLENE (MIRALAX) 17 GM PACK PO SCH ×2 (05:45→12:10)
[2018-01-26 06:34] VITALS: BP 126/72; PULSE 80; TEMP 36.8; O2SAT 96
--- NOTE | 2018-01-26 08:54 | Discharge Summary ---
Orthopedic Discharge Summary Admission Date/Reason Jan 23, 2018 at 16:28 Spinal Stenosis Of Lumbar Region With Radiculopath. Discharge Date/Disposition Jan 26, 2018 Home Diagnosis Principal Diagnosis: Lumbar spinal stenosis with herniated disc pulposus and radiculopathy Admission Physical Exam As per Admitting History & Physical. Hospital Course Patient was admitted from the emergency room with severe left leg pain and urinary retention. He underwent decompression fusion the next morning tolerated as well as taken with orthopedic for postoperative. Postop day #1 is up and amatory leg symptoms improved progressed the postop day #2 CECILIA drain decreased appropriately subsequently discharged home. Discharge orders and instructions found in the chart for further review. Discharge Instructions Please refer to the electronic Patient Visit Report (Discharge Instructions) for additional information.
[2018-01-26] MEDS: DOCUSATE SODIUM 100 MG CAP PO SCH (09:00)
[2018-01-26] MEDS: LAMOTRIGINE 100 MG PO SCH (09:19)
[2018-01-26 10:57] VITALS: BP 126/72; PULSE 80; TEMP 36.8; O2SAT 96
== END 2018-01-26 12:56 | disposition home or self-care (01) | DRG 455 ==
LOC: C.EDC 12:00 → C.3E 16:28 → EDBEDREQSVC 16:46 → ENRESERV 16:52
PROVIDERS: ADMIT Orthopaedic Surgery Orthopaedic Surgery of the Spine; ATTEND Orthopaedic Surgery Orthopaedic Surgery of the Spine
PROC: 0ST40ZZ Resection of Lumbosacral Disc, Open Approach (ICD-10-PCS; principal; 2018-01-24 10:15)
PROC: 0SG3071 Fusion of Lumbosacral Joint with Autologous Tissue Substitute, Posterior Approach, Posterior Column, Open Approach (ICD-10-PCS; principal; 2018-01-24 10:15)
PROC: 0SG30AJ Fusion of Lumbosacral Joint with Interbody Fusion Device, Posterior Approach, Anterior Column, Open Approach (ICD-10-PCS; principal; 2018-01-24 10:15)
DX: M51.17 Intervertebral disc disorders with radiculopathy, lumbosacral region (principal); M48.061 Spinal stenosis, lumbar region without neurogenic claudication; Z79.899 Other long term (current) drug therapy; R33.8 Other retention of urine